=== PATIENT | male | born 1975 | race American Indian/Alaskan Native ===

== ENCOUNTER 2022-03-25 21:47 | Emergency (ER) | payer OTHER ==
[~2022-03-25] VITALS: Ht 182.9 cm; Wt 99.8 kg
[2022-03-25] MEDS ORDERED: Vibramycin100 MG PO (22:36)
== END 2022-03-25 22:37 | disposition home or self-care (01) ==
LOC: ER 21:47
DX: S50.862A Insect bite (nonvenomous) of left forearm, initial encounter (principal); W57.XXXA Bitten or stung by nonvenomous insect and other nonvenomous arthropods, initial encounter
CPT/HCPCS: 99282